=== PATIENT | female | born 1960 | race Caucasian/White ===

== ENCOUNTER → 2017-10-20 | Outpatient (CLI) | payer BC ==
--- NOTE | 2017-10-20 12:09 | EST ---
EXERCISE STRESS AGE.: 57 SEX: F HT: 62 WT: 204 PROTOCOL: Jose Stress Test STAGE: 3 DURATION OF EXERCISE: 7:00 HEART RATE REST: 96 BLOOD PRESSURE REST: 160/100 MAXIMUM HEART RATE ACHIEVED: 164 MAXIMUM BLOOD PRESSURE: 206/103 85% MPHR: 140 100% MPHR: 165 METS: 8.0 INDICATIONS: Abnormal EKG, palpitations. CLINICAL INFORMATION: Baseline EKG shows sinus rhythm with poor R-wave progression. Patient exercised on Jose protocol for a total of 7 minutes achieving 8 METS, 99% of predicted maximal heart rate without chest pain or diagnostic ST-segment depression. CONCLUSION: 1. Average exercise tolerance. 2. Negative stress test by EKG criteria. MMODL / IJN: [id number] /
== END | disposition home or self-care (01) ==
LOC: RADNMMAIN 10:52
PROVIDERS: ATTEND Family Medicine
DX: R00.0 Tachycardia, unspecified (principal); R94.31 Abnormal electrocardiogram [ECG] [EKG]
CPT/HCPCS: 93017